=== PATIENT | female | born 1940 | race Caucasian/White ===

== ENCOUNTER 2017-01-08 22:42 | Inpatient (IN) | payer OTHER ==
[~2017-01-08] VITALS: Ht 167.6 cm; Wt 85.7 kg
[~2017-01-08 22:42] MED LIST: ACCUPRIL PO; ACCUPRIL40 MG PO; ASCORBIC ACID500 M3 PO; ASPIRIN CHEWABL81 M2 PO; Ascorbic Acid,Ester- PO; B COMPLEX #11 EACH PO; BETAPACE,SORINE80 M1 PO; BROMOCRIPTINE2.5 MG PO; BUPROPION XL300 MG PO; CALCIUM 500 +1 EAC2 PO; CALTRATE 6001 TABLE1 PO; CLARITIN10 M3 PO; COQ-10100 MG PO; CYMBALTA60 MG PO; Claritin,Alavart PO; DAILY VITAMIN1 EAC8 PO; ELAVIL25 MG PO; Flexeril PO; GLUCOSAMINE CH1 EAC2 PO; Glucosamine/Chondroi PO; HYDROCHLOROTHIA50 MG PO; Hydrodiuril,Oretic,E PO; Levothroid,Synthroid PO; MIRALAX17 GM PO; MS CONTIN,ORAMO15 M1 PO; NASONEX17 GM; NASONEX17 GM BOTH NARES; PERCOCET 7.51 TABLET PO; PRAVACHOL20 MG PO; Parlodel PO; Pradaxa PO; Pravachol PO; SOTALOL80 MG PO; SUPER B COM1 CAPSULE PO; SYNTHROID125 MCG PO; THERAGRAN1 TABLET PO; Vicodin,Lortab 5/500 PO; Vitamin D PO; XALATAN2.5 ML BOTH EYES; XARELTO20 MG PO; Xalatan 0.005% Ophth
[2017-01-09 00:16] LABS: HEMATOCRIT 31.5 % (36.0-46.0); MCH 23.9 PG (29.0-34.0); MCHC 30.2 G/DL (30.0-36.0); MCV 79.1 FL (83-99); MEAN PLAT.VOLUME 9.2 uM^3 (9.5-12.4); PLATELET COUNT 404 K/uL (156-360); RBC DIS.WIDTH-CV 16.2 % (11.8-14.6); RBC DIS.WIDTH-SD 46.4 % (39-53); RED BLOOD COUNT 3.98 M/uL (3.80-5.20); WHITE BLOOD COUNT 18.4 K/uL (4.1-10.2)
[2017-01-09 00:24] LABS: INTER. NORMALIZED RATIO 1.6; PROTHROMBIN TIME 16.3 (9.2-11.2); PTT 36.2 (25-32)
[2017-01-09 00:26] LABS: CHLORIDE 97 mEq/L (99-109); SODIUM 136 mEq/L (136-147)
[2017-01-09 00:28] LABS: GLUCOSE 104 mg/dL (70-99)
[2017-01-09 00:29] LABS: ANION GAP 15 MEQ/L (2-14)
[2017-01-09 00:32] LABS: GFR ESTIMATE (CALCULATED) > 59 mL/min/; UREA NITROGEN (BUN) 18 mg/dL (9-23)
[2017-01-09 00:36] LABS: TROP-I INTERPRETATION NEGATIVE; TROPONIN-I < 0.01 ng/mL (0.0-0.30)
[2017-01-09 00:40] LABS: POTASSIUM 3.3 mEq/L (3.7-5.4)
[2017-01-09] MEDS ORDERED: CYMBALTA60 MG PO (00:44)
[2017-01-09] MEDS ORDERED: LEVO-T125 MCG PO (00:45)
[2017-01-09] MEDS ORDERED: DILTIAZEM 24HR180 MG PO (00:46)
[2017-01-09] MEDS ORDERED: BENAZEPRIL HCL40 MG PO (00:46)
[2017-01-09] MEDS ORDERED: MELOXICAM15 MG PO (00:46)
[2017-01-09] MEDS ORDERED: DAILY VITAMIN1 EAC2 PO (00:48)
[2017-01-09 01:11] LABS: ADD MIUA? YES; BILIRUBIN NEGATIVE; BLOOD SMALL; COLOR YELLOW ((YELLOW)); GLUCOSE (STRIP) NEGATIVE; KETONES 20; LEUKOCYTES TRACE; NITRITE NEGATIVE; PROTEIN (STRIP) 30; SPECIFIC GRAVITY 1.013 (1.000-1.030); UROBILINOGEN 0.2 MG/DL (0.2-1.0)
[2017-01-09 01:20] LABS: BACTERIA RARE /HPF; EPITHELIAL CELLS 1+ /HPF; MUCUS TRACE /LPF; RED BLOOD CELLS 20-30 /HPF (0-5); UCUL ADDED? NO
[2017-01-09 04:11] VITALS: BP 109/62
[2017-01-09 07:08] VITALS: BP 124/65
[2017-01-09 09:32] LABS: IMM.RETIC FRACTION 30.7 % (3-19); RETIC HGB EQUIVALENT 23.7 (28-36); RETICULOCYTE COUNT 2.1 % (0.5-1.8)
[2017-01-09 10:26] LABS: INFLUENZA A VIRAL ANTIGEN NEGATIVE; INFLUENZA B VIRAL ANTIGEN NEGATIVE
[2017-01-09 10:30] LABS: ABS NEUTROPHIL COUNT 16.7; ANISOCYTOSIS 1+; ATYPICAL LYMPHOCYTE 0.9 %; BAND NEUTROPHILS 5.4 % (0-8.0); BURR CELLS 1+; EOSINOPHIL ABS CT 0; HYPOCHROMASIA 1+; LYMPHOCYTES 4.5 % (15.0-45.0); MICROCYTOSIS 1+; OVALOCYTES 1+; PLAT.SUFFICIENCY ADEQUATE; POIKILOCYTOSIS 2+; SEG.NEUTROPHILS 85.6 % (46.0-76.0)
[2017-01-09 11:56] LABS: POC NON-PRINT COM 1 ND
[2017-01-09 12:14] VITALS: BP 117/67
[2017-01-09 13:25] LABS: LYME DISEASE SEROLOGY SCREEN NEGATIVE (NEGATIVE)
[2017-01-09 16:47] VITALS: BP 120/62
[2017-01-09 19:47] VITALS: BP 141/87
[2017-01-09 23:03] VITALS: BP 143/76
[2017-01-10 04:50] VITALS: BP 113/53
[2017-01-10 05:25] LABS: EOSINOPHIL (%) 0.1 % (0-5); HEMATOCRIT 29.2 % (36.0-46.0); IMMATURE GRANULOCYTE (%) 0.6 % (0.0-0.7); IMMATURE GRANULOCYTE COUNT 0.1 K/uL; INSTRUMENT ABS NEUTROPHIL CT 10.1 K/uL; LYMPHOCYTE COUNT 2.2 K/uL (1.0-2.8); MCH 24.2 PG (29.0-34.0); MCHC 29.8 G/DL (30.0-36.0); MCV 81.3 FL (83-99); MEAN PLAT.VOLUME 9.6 uM^3 (9.5-12.4); MONOCYTE (%) 9.8 % (3-12); MONOCYTE COUNT 1.4 K/uL (0-0.8); NEUTROPHIL (%) 73.4 % (45-76); NEUTROPHIL COUNT 10.1 K/uL (1.8-6.4); PLATELET COUNT 381 K/uL (156-360); RBC DIS.WIDTH-CV 16.5 % (11.8-14.6); RBC DIS.WIDTH-SD 48.8 % (39-53); RED BLOOD COUNT 3.59 M/uL (3.80-5.20); WHITE BLOOD COUNT 13.8 K/uL (4.1-10.2)
[2017-01-10 05:46] LABS: ANION GAP 11 MEQ/L (2-14); CHLORIDE 101 MEQ/L (99-109); GFR ESTIMATE (CALCULATED) > 59 mL/min/; GLUCOSE 122 mg/dL (70-99); POTASSIUM 3.6 MEQ/L (3.7-5.4); SAMPLE HEMOLYSIS CHECK 0; SAMPLE ICTERIC CHECK 0; SAMPLE LIPEMIA CHECK 0; SODIUM 139 MEQ/L (136-147); UREA NITROGEN (BUN) 13 mg/dL (9-23)
[2017-01-10 08:21] VITALS: BP 130/75
[2017-01-10 12:00] VITALS: BP 112/68
[2017-01-10 19:50] VITALS: BP 122/75
[2017-01-10 23:20] VITALS: BP 123/96
[2017-01-11 04:43] VITALS: BP 117/65
[2017-01-11 05:45] LABS: HEMATOCRIT 28.2 % (36.0-46.0); MCH 24.1 PG (29.0-34.0); MCHC 29.8 G/DL (30.0-36.0); MCV 80.8 FL (83-99); MEAN PLAT.VOLUME 9.5 uM^3 (9.5-12.4); PLATELET COUNT 356 K/uL (156-360); RBC DIS.WIDTH-CV 16.5 % (11.8-14.6); RED BLOOD COUNT 3.49 M/uL (3.80-5.20); WHITE BLOOD COUNT 11.6 K/uL (4.1-10.2)
[2017-01-11 06:07] LABS: ANION GAP 10 MEQ/L (2-14); CHLORIDE 102 MEQ/L (99-109); GFR ESTIMATE (CALCULATED) > 59 mL/min/; GLUCOSE 117 mg/dL (70-99); IRON 14 MCG/DL (35-150); POTASSIUM 3.4 MEQ/L (3.7-5.4); SAMPLE HEMOLYSIS CHECK 0; SAMPLE ICTERIC CHECK 0; SAMPLE LIPEMIA CHECK 0; SODIUM 138 MEQ/L (136-147); UREA NITROGEN (BUN) 14 mg/dL (9-23)
[2017-01-11 07:48] LABS: FERRITIN 154 NG/ML (10-291)
[2017-01-11 09:05] VITALS: BP 134/75
[2017-01-11 12:14] VITALS: BP 119/65
[2017-01-11 16:21] VITALS: BP 120/68
[2017-01-11 20:15] VITALS: BP 156/86
[2017-01-11 23:35] VITALS: BP 125/72
[2017-01-12 04:31] VITALS: BP 138/74
[2017-01-12 07:18] VITALS: BP 133/84
[2017-01-12] MEDS ORDERED: BACTRIM,SEPT1 TABLET PO (08:50)
[2017-01-12] MEDS ORDERED: CARDIZEM60 MG PO (08:55)
== END 2017-01-12 10:30 | disposition home or self-care (01) | DRG 690 ==
LOC: EME → EDBD 22:42 → EME 22:42 → 4EAST 01-09 02:40 → EDOF 01-09 02:40 → 4EAST 01-09 04:03
PROVIDERS: Emergency Medicine; Hospitalist; Internal Medicine
DX: N39.0 Urinary tract infection, site not specified (principal); B96.20 Unspecified Escherichia coli [E. coli] as the cause of diseases classified elsewhere; E89.0 Postprocedural hypothyroidism; E78.5 Hyperlipidemia, unspecified; D64.9 Anemia, unspecified; H40.9 Unspecified glaucoma; M54.9 Dorsalgia, unspecified; I10 Essential (primary) hypertension; I48.1 Persistent atrial fibrillation; I45.10 Unspecified right bundle-branch block; M19.90 Unspecified osteoarthritis, unspecified site; F41.9 Anxiety disorder, unspecified; I49.3 Ventricular premature depolarization; D47.3 Essential (hemorrhagic) thrombocythemia; D35.2 Benign neoplasm of pituitary gland; I48.2 Chronic atrial fibrillation; Z96.651 Presence of right artificial knee joint; F33.9 Major depressive disorder, recurrent, unspecified; Z85.828 Personal history of other malignant neoplasm of skin; Z87.891 Personal history of nicotine dependence; Z79.01 Long term (current) use of anticoagulants; Z82.5 Family history of asthma and other chronic lower respiratory diseases; Z82.49 Family history of ischemic heart disease and other diseases of the circulatory system; Z83.79 Family history of other diseases of the digestive system
CPT/HCPCS: 71010; 80048; 81003; 82272; 82728; 83540; 83605; 84466; 84484; 85007; 85025; 85027; 85045; 85610; 85730; 86618; 87040; 87077; 87086; 87186; 87502; 87801; 93005; 93306; 94799; 99202; 99281; 99285; J0456; J0696; J7030; J7050

== ENCOUNTER 2017-08-06 10:26 | Inpatient (IN) | payer OTHER ==
[~2017-08-06] VITALS: Ht 167.6 cm; Wt 81.4 kg
[~2017-08-06 10:26] MED LIST changes: +BACTRIM,SEPT1 TABLET PO; +BENAZEPRIL HCL40 MG PO; +CARDIZEM CD180 MG PO; +CARDIZEM CD240 MG PO; +CARDIZEM60 MG PO; +DAILY VITAMIN1 EAC2 PO; +DILTIAZEM 24HR180 MG PO; +LASIX40 MG PO; +LEVO-T125 MCG PO; +MELOXICAM15 MG PO; +PERCOCET 10/1 TABLET PO; -PERCOCET 7.51 TABLET PO
[2017-10-16] MEDS ORDERED: FLEXERIL10 MG PO (14:21)
[2017-10-16] MEDS ORDERED: DILTIAZEM 24HR180 MG PO (14:23)
[2017-10-16] MEDS ORDERED: CYMBALTA60 MG PO (14:24)
[2017-10-22 06:24] VITALS: BP 102/58
[2017-10-22 11:00] VITALS: BP 144/78
[2017-10-22 15:46] VITALS: BP 115/79
[2017-10-22 19:40] VITALS: BP 129/70
[2017-10-23 00:16] VITALS: BP 146/81
[2017-10-23 04:12] VITALS: BP 139/87
[2017-10-23 06:10] LABS: HEMATOCRIT 36.5 % (36.0-46.0); HEMOGLOBIN 11.7 G/DL (11.9-15.5)
[2017-10-23 08:21] VITALS: BP 146/96
[2017-10-23] MEDS ORDERED: OXYCODONE HCL5 MG PO (08:40)
== END 2017-10-23 10:20 | disposition home or self-care (01) | DRG 483 ==
LOC: 2SOUTH → ENRESERV 10-21 21:36 → 2SOUTH 10-22 05:52 → 3WEST 10-22 10:38 → 2SOUTH 10-22 14:31 → 3WEST 10-23 10:20 → 2SOUTH 02-04 12:52
PROVIDERS: Orthopaedic Surgery
PROC: 0RRJ00Z Replacement of Right Shoulder Joint with Reverse Ball and Socket Synthetic Substitute, Open Approach (ICD-10-PCS; principal; 2017-10-22)
DX: M19.011 Primary osteoarthritis, right shoulder (principal); I48.91 Unspecified atrial fibrillation; I10 Essential (primary) hypertension; E78.5 Hyperlipidemia, unspecified; E89.0 Postprocedural hypothyroidism; M81.0 Age-related osteoporosis without current pathological fracture; Z89.521 Acquired absence of right knee; Z79.01 Long term (current) use of anticoagulants; Z87.891 Personal history of nicotine dependence
CPT/HCPCS: 73020; 85014; 85018; C1713; J0131; J0330; J0690; J1170; J2250; J2370; J2405; J2795; J7050; J7120; Q0175